=== PATIENT | male | born 1985 | race Caucasian/White ===

== ENCOUNTER 2019-04-20 21:57 | Inpatient (IN) | payer OTHER ==
[2019-04-20 23:23] VITALS: BMI 25.5
--- NOTE | 2019-04-21 04:33 | HP ---
CIWA Score - Admission Criteria OASAS Guidelines: Admission for Medically Managed Detox: Requires at least one of the followin. CIWA greater than 12 2. Seizures within the past 24 hours 3. Delirium tremens within the past 24 hours 4. Hallucinations within the past 24 hours 5. Acute intervention needed for co occurring medical disorder 6. Acute intervention needed for co occurring psychiatric disorder 7. Severe withdrawal that cannot be handled at a lower level of care (continued vomiting, continued diarrhea, abnormal vital signs) requiring intravenous medication and/or fluids 8. Admission ROS [facility] - HPI Chief Complaint: Seeking admission to Rehab Allergies/Adverse Reactions: Allergies Allergy/AdvReac Type Severity Reaction Status Date / Time No Known Allergies Allergy Verified 04/20/19 23:00 History of Present Illness: 34 years old male with history of alcohol dependence is seeking admission to Rehab. He denies past medical history and reports suicidal attempt in 2018. Patient denies suicidal ideation at this time. - Ebola screening Have you traveled outside of the country in the last 21 days: No (N) Have you had contact with anyone from an Ebola affected area: No Do you have a fever: No - Review of Systems Constitutional: No Symptoms Reported EENT: reports: No Symptoms Reported Respiratory: reports: No Symptoms reported Cardiac: reports: No Symptoms Reported GI: reports: No Symptoms Reported : reports: No Symptoms Reported Musculoskeletal: reports: No Symptoms Reported Integumentary: reports: No Symptoms Reported Neuro: reports: No Symptoms reported Endocrine: reports: No Symptoms Reported Hematology: reports: No Symptoms Reported Psychiatric: reports: Mood/Affect Appropiate, Orientated x3 Other Systems: Reviewed and Negative Patient History - Patient Medical History Hx Anemia: No Hx Asthma: No Hx Chronic Obstructive Pulmonary Disease (COPD): No Hx Cancer: No Hx Cardiac Disorders: No Hx Congestive Heart Failure: No Hx Hypertension: No Hx Hypercholesterolemia: No Hx Pacemaker: No HX Cerebrovascular Accident: No Hx Seizures: No Hx Dementia: No Hx Diabetes: No Hx Gastrointestinal Disorders: No Hx Liver Disease: No Hx Genitourinary Disorders: No Hx Sexually Transmitted Disorders: No Hx Renal Disease (ESRD): No Hx Thyroid Disease: No Hx Human Immunodeficiency Virus (HIV): No Hx Hepatitis C: No Hx Depression: No Hx Suicide Attempt: No Hx Bipolar Disorder: No Hx Schizophrenia: No - Patient Surgical History Past Surgical History: No - PPD History Previous Implant?: Yes Documented Results: Negative w/o proof Implanted On Prior [facility] Admission?: No PPD to be Administered?: Yes - Reproductive History Patient is a Female of Child Bearing Age (11 -55 yrs old): No (male) - Smoking Cessation Smoking history: Current every day smoker Have you smoked in the past 12 months: Yes Aproximately how many cigarettes per day: 7 Hx Chewing Tobacco Use: Yes Initiated information on smoking cessation: No 'Breaking Loose' booklet given: 04/21/19 - Substance & Tx. History Hx Alcohol Use: Yes Hx Substance Use: Yes Substance Use Type: Alcohol, Tranquilizers Hx Substance Use Treatment: Yes - Substances abused Alcohol Substance route: Oral Frequency: 3-6 times per week Amount used: 12 shots of Vodka Age of first use: 14 Date of last use: 04/19/19 K2/Spice Substance route: Smoking Frequency: Daily Amount used: $10 Age of first use: 34 Date of last use: 04/19/19 Admission Physical Exam [facility] - Vital Signs Vital Signs: Vital Signs - 24 hr 04/20/19 22:59 Temperature 97.1 F L Pulse Rate 71 Respiratory 16 Rate Blood Pressure 146/90 - Physical General Appearance: Yes: Within Normal Limits HEENTM: Yes: Within Normal Limits, DIONE Respiratory: Yes: Within Normal Limits, Normal Breath Sounds, No Respiratory Distress Neck: Yes: No masses,lesions,Nodules, Trachea in good position Breast: Yes: Breast Exam Deferred Cardiology: Yes: Within Normal Limits Abdominal: Yes: Normal Bowel Sounds Genitourinary: Yes: Within Normal Limits Back: Yes: Normal Inspection Musculoskeletal: Yes: Within Normal Limits Extremities: Yes: Normal Capillary Refill, Normal Inspection Neurological: Yes: Within Normal Limits, biscuit packer II-XII NML intact Integumentary: Yes: Normal Color Lymphatic: Yes: Within Normal Limits - Diagnostic (1) Alcohol dependence Current Visit: Yes Status: Acute Qualifiers: Substance use status: uncomplicated Qualified Code(s): F10.20 - Alcohol dependence, uncomplicated (2) Nicotine dependence Current Visit: Yes Status: Chronic Qualifiers: Nicotine product type: cigarettes Substance use status: uncomplicated Qualified Code(s): F17.210 - Nicotine dependence, cigarettes, uncomplicated Cleared for Admission S - Detox or Rehab [facility] Level of Care: Observation Bed Claeared for Rehab Admission: Yes Breathalyzer - Breathalyzer Breathalyzer: 0 Inpatient Rehab Admission - Rehab Decision to Admit Inpatient rehab admission?: Yes - Initial Determination Are CD services needed?: No Free of communicable disease: Yes Not in need of hospitalization: Yes - Rehab Admission Criteria Previous failed treatment: Yes Poor recovery environment: Yes Comorbidities: Yes Lacks judgement: No Patient is meeting Inpatient Rehab admission criteria:: Yes
[2019-04-21] MEDS ORDERED: ACETAMINOPHEN 325 MG TABLET (FP) PO PRN (04:37)
[2019-04-21] MEDS ORDERED: MAGNESIUM HYDROX 2400MG/30ML ORAL SUSPENSION 30 ML CUP PO PRN (04:37)
[2019-04-21] MEDS ORDERED: MAGNESIUM CITRATE 300 ML BOTTLE PO PRN (04:37)
[2019-04-21] MEDS ORDERED: MAG HYDROX/AL HYDROX/SIMETH 30 ML UNIT-DOSE CUP PO PRN (04:37)
[2019-04-21] MEDS ORDERED: IBUPROFEN 400 MG TABLET (FP) PO PRN (04:37)
[2019-04-21] MEDS ORDERED: NICOTINE POLACRILEX 2 MG GUM BUC PRN (04:37)
[2019-04-21] MEDS ORDERED: P-EPHED 60MG/TRIPROLIDI 2.5MG TABLET PO PRN (04:37)
[2019-04-21] MEDS ORDERED: LOPERAMIDE HCL 2 MG CAPSULE PO PRN (04:37)
[2019-04-21] MEDS ORDERED: guaiFENesin 200 MG/10 ML 10 ML UNIT-DOSE CUPS PO PRN (04:37)
[2019-04-21] MEDS ORDERED: MENTHOL/PHENOL 1 EACH UD MM PRN (04:37)
[2019-04-21] MEDS: NICOTINE 14 MG/24 HOURS TOPICAL PATCH TD SCH (10:35)
[2019-04-21] MEDS: PRENATAL VITAMINS W/ FOLIC ACID TABLET (FP) PO SCH (10:35)
[2019-04-21 11:40] LABS: HEMATOCRIT 43.4 % (35.4-49); HEMOGLOBIN 14.4 GM/dL (11.7-16.9); MCH 30.9 pg (25.7-33.7); MCHC 33.1 g/dl (32.0-35.9); MEAN CELL VOLUME 93.3 fl (80-96); MEAN PLT VOLUME 9.7 fl (7.5-11.1); PLATELET COUNT 247 K/MM3 (134-434); RBC 4.65 M/mm3 (4.00-5.60); RDW 13.5 % (11.9-15.9); WHITE BLOOD COUNT 7.6 K/mm3 (4.0-10.0)
[2019-04-21 11:53] LABS: ALBUMIN 4.2 g/dl (3.4-5.0); BILIRUBIN,TOTAL 1.4 mg/dL (0.2-1); BLOOD UREA NITROGEN 17.9 mg/dL (7-18); CALCIUM 9.8 mg/dL (8.5-10.1); CREATININE 1.1 mg/dL (0.55-1.3); POTASSIUM 3.9 mmol/L (3.5-5.1); TOT PROT 7.4 g/dl (6.4-8.2)
--- NOTE | 2019-04-21 13:06 | PN ---
[facility] Progress Note Note: Pt requesting to continue with medication for abrasion(sustained when jumped and fell on concrete) on lower jaw and itchy cracked feet. Reports he was given two Rx but forgot it in the pharmacy outside before coming here. Pt is a new admission to rehab earlier last night. Alert o x 3. oob ambulating on the unit. NAD. Vital Signs - 24 hr 04/20/19 04/21/19 22:59 07:50 Temperature 97.1 F L 97.4 F L Pulse Rate 71 76 Respiratory 16 18 Rate Blood Pressure 146/90 138/88 Laboratory Tests 04/21/19 04/21/19 08:40 08:40 WBC 7.6 RBC 4.65 Hgb 14.4 Hct 43.4 MCV 93.3 MCH 30.9 MCHC 33.1 RDW 13.5 Plt Count 247 MPV 9.7 Sodium 138 Potassium 3.9 Chloride 104 Carbon Dioxide 26 Anion Gap 8 BUN 17.9 Creatinine 1.1 Est GFR (CKD-EPI)AfAm 99.57 Est GFR (CKD-EPI)NonAf 85.91 Random Glucose 133 H Calcium 9.8 Total Bilirubin 1.4 H AST 55 H ALT 102 H Alkaline Phosphatase 68 Total Protein 7.4 Albumin 4.2 Abrasion on bearded area on mid lower jaw. A/P Jaw abrasion hx Tinea pedis Tinactin cream apply as directed. Bacitracin ointment TP BID apply to affected area
[2019-04-21 15:14] LABS: URINE APPEARANCE CLEAR; URINE BILIRUBIN NEGATIVE (NEGATIVE); URINE COLOR YELLOW; URINE GLUCOSE (UA) NEGATIVE (NEGATIVE); URINE KETONE NEGATIVE (NEGATIVE); URINE LEUK ESTERASE NEGATIVE (NEGATIVE); URINE NITRITE NEGATIVE (NEGATIVE); URINE PROTEIN NEGATIVE (NEGATIVE)
[2019-04-21] MEDS: TOLNAFTATE 1% CREAM 15 GM TUBE TP SCH ×2 (15:34→21:27)
[2019-04-21] MEDS: BACITRACIN 15 GM TUBE TOPICAL OINTMENT TP SCH ×2 (15:34→21:26)
[2019-04-21] MEDS: MELATONIN 5 MG TABLETS PO PRN (21:28)
[2019-04-21] MEDS: THIAMINE HCL 100 MG TABLET (FP) PO SCH (21:28)
[2019-04-22] MEDS: TOLNAFTATE 1% CREAM 15 GM TUBE TP SCH ×2 (10:15→21:24)
[2019-04-22] MEDS: PRENATAL VITAMINS W/ FOLIC ACID TABLET (FP) PO SCH (10:15)
[2019-04-22] MEDS: NICOTINE 14 MG/24 HOURS TOPICAL PATCH TD SCH (10:16)
[2019-04-22] MEDS: BACITRACIN 15 GM TUBE TOPICAL OINTMENT TP SCH ×2 (10:17→21:24)
[2019-04-22] MEDS: THIAMINE HCL 100 MG TABLET (FP) PO SCH (21:23)
[2019-04-23] MEDS: PRENATAL VITAMINS W/ FOLIC ACID TABLET (FP) PO SCH (10:21)
[2019-04-23] MEDS: NICOTINE 14 MG/24 HOURS TOPICAL PATCH TD SCH (10:21)
[2019-04-23] MEDS: BACITRACIN 15 GM TUBE TOPICAL OINTMENT TP SCH ×2 (10:22→21:26)
[2019-04-23] MEDS: TOLNAFTATE 1% CREAM 15 GM TUBE TP SCH ×2 (10:23→21:26)
[2019-04-23] MEDS: THIAMINE HCL 100 MG TABLET (FP) PO SCH (21:25)
[2019-04-23] MEDS: MELATONIN 5 MG TABLETS PO PRN (21:25)
[2019-04-24] MEDS: PRENATAL VITAMINS W/ FOLIC ACID TABLET (FP) PO SCH (10:30)
[2019-04-24] MEDS: BACITRACIN 15 GM TUBE TOPICAL OINTMENT TP SCH ×2 (10:31→21:31)
[2019-04-24] MEDS: NICOTINE 14 MG/24 HOURS TOPICAL PATCH TD SCH (10:32)
[2019-04-24] MEDS: TOLNAFTATE 1% CREAM 15 GM TUBE TP SCH ×2 (10:32→21:31)
[2019-04-24] MEDS: MELATONIN 5 MG TABLETS PO PRN (21:31)
[2019-04-24] MEDS: THIAMINE HCL 100 MG TABLET (FP) PO SCH (21:31)
[2019-04-25] MEDS: TOLNAFTATE 1% CREAM 15 GM TUBE TP SCH ×2 (09:57→21:26)
[2019-04-25] MEDS: PRENATAL VITAMINS W/ FOLIC ACID TABLET (FP) PO SCH (09:57)
[2019-04-25] MEDS: NICOTINE 14 MG/24 HOURS TOPICAL PATCH TD SCH (09:57)
[2019-04-25] MEDS: BACITRACIN 15 GM TUBE TOPICAL OINTMENT TP SCH ×2 (09:58→21:26)
[2019-04-25] MEDS: THIAMINE HCL 100 MG TABLET (FP) PO SCH (21:25)
[2019-04-25] MEDS: MELATONIN 5 MG TABLETS PO PRN (21:25)
[2019-04-26] MEDS: BACITRACIN 15 GM TUBE TOPICAL OINTMENT TP SCH ×2 (10:25→21:36)
[2019-04-26] MEDS: PRENATAL VITAMINS W/ FOLIC ACID TABLET (FP) PO SCH (10:26)
[2019-04-26] MEDS: NICOTINE 14 MG/24 HOURS TOPICAL PATCH TD SCH (10:26)
[2019-04-26] MEDS: TOLNAFTATE 1% CREAM 15 GM TUBE TP SCH ×2 (10:27→21:36)
[2019-04-26] MEDS: THIAMINE HCL 100 MG TABLET (FP) PO SCH (21:36)
[2019-04-26] MEDS: MELATONIN 5 MG TABLETS PO PRN (21:37)
[2019-04-27] MEDS: PRENATAL VITAMINS W/ FOLIC ACID TABLET (FP) PO SCH (10:16)
[2019-04-27] MEDS: NICOTINE 14 MG/24 HOURS TOPICAL PATCH TD SCH (10:17)
[2019-04-27] MEDS: TOLNAFTATE 1% CREAM 15 GM TUBE TP SCH ×2 (10:18→21:28)
[2019-04-27] MEDS: BACITRACIN 15 GM TUBE TOPICAL OINTMENT TP SCH ×2 (10:18→21:28)
[2019-04-27] MEDS: THIAMINE HCL 100 MG TABLET (FP) PO SCH (21:28)
[2019-04-27] MEDS: MELATONIN 5 MG TABLETS PO PRN (21:28)
[2019-04-28] MEDS: PRENATAL VITAMINS W/ FOLIC ACID TABLET (FP) PO SCH (10:49)
[2019-04-28] MEDS: BACITRACIN 15 GM TUBE TOPICAL OINTMENT TP SCH ×2 (10:50→21:29)
[2019-04-28] MEDS: TOLNAFTATE 1% CREAM 15 GM TUBE TP SCH ×2 (10:50→21:29)
[2019-04-28] MEDS: NICOTINE 14 MG/24 HOURS TOPICAL PATCH TD SCH (10:51)
--- NOTE | 2019-04-28 15:25 | PN ---
[facility] Progress Note Note: lab review: Laboratory Tests 04/21/19 04/21/19 04/21/19 08:40 08:40 08:40 WBC 7.6 RBC 4.65 Hgb 14.4 Hct 43.4 MCV 93.3 MCH 30.9 MCHC 33.1 RDW 13.5 Plt Count 247 MPV 9.7 Sodium 138 Potassium 3.9 Chloride 104 Carbon Dioxide 26 Anion Gap 8 BUN 17.9 Creatinine 1.1 Est GFR (CKD-EPI)AfAm 99.57 Est GFR (CKD-EPI)NonAf 85.91 POC Glucometer Random Glucose 133 H Calcium 9.8 Total Bilirubin 1.4 H AST 55 H ALT 102 H Alkaline Phosphatase 68 Total Protein 7.4 Albumin 4.2 Urine Color Urine Appearance Urine pH Ur Specific [place] Urine Protein Urine Glucose (UA) Urine Ketones Urine Blood Urine Nitrite Urine Bilirubin Urine Urobilinogen Ur Leukocyte Esterase RPR Titer Nonreactive Hep C Ab Diagnostic HCV RNA PCR w/Genot Rflx Liver Fibrosis Interp HIV 1&2 Ag/Ab, 4th Gen 04/21/19 04/22/19 04/23/19 13:35 09:00 06:37 WBC RBC Hgb Hct MCV MCH MCHC RDW Plt Count MPV Sodium Potassium Chloride Carbon Dioxide Anion Gap BUN Creatinine Est GFR (CKD-EPI)AfAm Est GFR (CKD-EPI)NonAf POC Glucometer 88 Random Glucose Calcium Total Bilirubin AST ALT Alkaline Phosphatase Total Protein Albumin Urine Color Yellow Urine Appearance Clear Urine pH 7.0 Ur Specific [place] 1.023 Urine Protein Negative Urine Glucose (UA) Negative Urine Ketones Negative Urine Blood Negative Urine Nitrite Negative Urine Bilirubin Negative Urine Urobilinogen 1.0 Ur Leukocyte Esterase Negative RPR Titer Hep C Ab Diagnostic >11.0 H HCV RNA PCR w/Genot Rflx [id number] Liver Fibrosis Interp HIV 1&2 Ag/Ab, 4th Gen 04/24/19 04/25/19 06:26 07:50 WBC RBC Hgb Hct MCV MCH MCHC RDW Plt Count MPV Sodium Potassium Chloride Carbon Dioxide Anion Gap BUN Creatinine Est GFR (CKD-EPI)AfAm Est GFR (CKD-EPI)NonAf POC Glucometer 87 Random Glucose Calcium Total Bilirubin AST ALT Alkaline Phosphatase Total Protein Albumin Urine Color Urine Appearance Urine pH Ur Specific [place] Urine Protein Urine Glucose (UA) Urine Ketones Urine Blood Urine Nitrite Urine Bilirubin Urine Urobilinogen Ur Leukocyte Esterase RPR Titer Hep C Ab Diagnostic HCV RNA PCR w/Genot Rflx Liver Fibrosis Interp HIV 1&2 Ag/Ab, 4th Gen Non reactive Vital Signs - 24 hr 04/28/19 04/28/19 04/28/19 00:30 03:30 07:12 Temperature 97.2 F L Pulse Rate 56 L Respiratory 18 18 18 Rate Blood Pressure 142/84 Hep C screen noted. Alert o x 3 nad oob ambulating with steady gait Pt states he has never been diagnosed with Hep C. However, pt reports had a comprehensive blood work at his primary care place with [facility] on [address] [place] [address] but did not go back yet for the results before coming here. Pt reports he last used I.V. crystal meth on 07/03/18 for many months before that. Reports was sharing needle with a girl but not sure her Hep C status. Pt is not a [place] Resident and wants to follow up with [facility] where his PCP is currently available to follow up with the results and review his previous blood work done there as well. Pt will be discharged with all lab results to follow up with his PCP(Pt is not sure his name but says he is at [facility]).
[2019-04-28] MEDS: MELATONIN 5 MG TABLETS PO PRN (21:29)
[2019-04-28] MEDS: THIAMINE HCL 100 MG TABLET (FP) PO SCH (21:29)
[2019-04-29] MEDS: NICOTINE 14 MG/24 HOURS TOPICAL PATCH TD SCH (10:24)
[2019-04-29] MEDS: TOLNAFTATE 1% CREAM 15 GM TUBE TP SCH ×2 (10:24→21:26)
[2019-04-29] MEDS: PRENATAL VITAMINS W/ FOLIC ACID TABLET (FP) PO SCH (10:24)
[2019-04-29] MEDS: BACITRACIN 15 GM TUBE TOPICAL OINTMENT TP SCH ×2 (10:24→21:26)
[2019-04-29] MEDS: THIAMINE HCL 100 MG TABLET (FP) PO SCH (21:24)
[2019-04-29] MEDS: MELATONIN 5 MG TABLETS PO PRN (21:25)
[2019-04-30] MEDS: TOLNAFTATE 1% CREAM 15 GM TUBE TP SCH ×2 (11:04→21:34)
[2019-04-30] MEDS: BACITRACIN 15 GM TUBE TOPICAL OINTMENT TP SCH ×2 (11:04→21:34)
[2019-04-30] MEDS: PRENATAL VITAMINS W/ FOLIC ACID TABLET (FP) PO SCH (11:04)
[2019-04-30] MEDS: NICOTINE 14 MG/24 HOURS TOPICAL PATCH TD SCH (11:04)
--- NOTE | 2019-04-30 14:28 | PN ---
[facility] Progress Note Note: Pt was seen today by this conventional underwriter as well as by Hep C community outreach personel , Ms Brooklyn Desai from [facility] to educate patient on hep C treatment after discharge. Pt was given some Hep C educational material for personal reference. Vital Signs 04/30/19 07:25 Temperature 97.1 F L Pulse Rate 59 L Respiratory 16 Rate Blood Pressure 137/84 Pt will follow up with PCP at [facility] in the [place] after rehab stay as earlier discussed.
[2019-04-30] MEDS: THIAMINE HCL 100 MG TABLET (FP) PO SCH (21:34)
[2019-04-30] MEDS: MELATONIN 5 MG TABLETS PO PRN (21:34)
[2019-05-01] MEDS: PRENATAL VITAMINS W/ FOLIC ACID TABLET (FP) PO SCH (10:12)
[2019-05-01] MEDS: NICOTINE 14 MG/24 HOURS TOPICAL PATCH TD SCH (10:12)
[2019-05-01] MEDS: BACITRACIN 15 GM TUBE TOPICAL OINTMENT TP SCH ×2 (10:13→21:41)
[2019-05-01] MEDS: TOLNAFTATE 1% CREAM 15 GM TUBE TP SCH ×2 (10:13→21:41)
[2019-05-01] MEDS: THIAMINE HCL 100 MG TABLET (FP) PO SCH (21:40)
[2019-05-01] MEDS: MELATONIN 5 MG TABLETS PO PRN (21:40)
[2019-05-02] MEDS: NICOTINE 14 MG/24 HOURS TOPICAL PATCH TD SCH (10:19)
[2019-05-02] MEDS: PRENATAL VITAMINS W/ FOLIC ACID TABLET (FP) PO SCH (10:19)
[2019-05-02] MEDS: BACITRACIN 15 GM TUBE TOPICAL OINTMENT TP SCH ×2 (10:20→21:24)
[2019-05-02] MEDS: TOLNAFTATE 1% CREAM 15 GM TUBE TP SCH ×2 (10:20→21:25)
[2019-05-02] MEDS: THIAMINE HCL 100 MG TABLET (FP) PO SCH (21:24)
[2019-05-02] MEDS: MELATONIN 5 MG TABLETS PO PRN (21:24)
[2019-05-03] MEDS: NICOTINE 14 MG/24 HOURS TOPICAL PATCH TD SCH (09:52)
[2019-05-03] MEDS: TOLNAFTATE 1% CREAM 15 GM TUBE TP SCH ×2 (09:52→21:28)
[2019-05-03] MEDS: PRENATAL VITAMINS W/ FOLIC ACID TABLET (FP) PO SCH (09:52)
[2019-05-03] MEDS: BACITRACIN 15 GM TUBE TOPICAL OINTMENT TP SCH ×2 (09:53→21:28)
[2019-05-03] MEDS: MELATONIN 5 MG TABLETS PO PRN (21:27)
[2019-05-03] MEDS: THIAMINE HCL 100 MG TABLET (FP) PO SCH (21:27)
[2019-05-04 07:16] VITALS: BP 138/86; PULSE 70; TEMP 97.6
--- NOTE | 2019-05-04 10:01 | DS ---
[facility] Rehab Discharge Summary - [facility] Rehab Discharge Summary Admission Date: 04/21/19 Discharge Date: 05/04/19 - History Present History: Alcohol dependence Additional Comments: Pt is a 34 y/o male admitted to rehab and discharged today after completion of treatment. Pt met with his counselor and has been referred to [facility] for CD aftercare. Pt has primary care at [facility] and will follow up with PCP after discharge. Pertinent Past History: Hep C(untreated) - Discharge Physical Exam Vital Signs: Vital Signs Temperature 97.6 F 05/04/19 07:15 Pulse Rate 70 05/04/19 07:15 Respiratory Rate 18 05/04/19 07:15 Blood Pressure 138/86 05/04/19 07:15 O2 Sat by Pulse Oximetry (%) Alert o x 3 nad oob ambulating with steady gait cardiac:s1 s2 rrr lungs:cta,gerber. Abdomen:soft,flat,nt,+bs extremities/skin:no edema,full ROM,skin intact,multiple tattoos on upper extremities. Pertinent Admission Physical Exam Findings: Laboratory Tests 04/21/19 04/21/19 04/21/19 08:40 08:40 08:40 WBC 7.6 RBC 4.65 Hgb 14.4 Hct 43.4 MCV 93.3 MCH 30.9 MCHC 33.1 RDW 13.5 Plt Count 247 MPV 9.7 Sodium 138 Potassium 3.9 Chloride 104 Carbon Dioxide 26 Anion Gap 8 BUN 17.9 Creatinine 1.1 Est GFR (CKD-EPI)AfAm 99.57 Est GFR (CKD-EPI)NonAf 85.91 POC Glucometer Random Glucose 133 H Calcium 9.8 Total Bilirubin 1.4 H AST 55 H ALT 102 H Alkaline Phosphatase 68 Total Protein 7.4 Albumin 4.2 Urine Color Urine Appearance Urine pH Ur Specific [place] Urine Protein Urine Glucose (UA) Urine Ketones Urine Blood Urine Nitrite Urine Bilirubin Urine Urobilinogen Ur Leukocyte Esterase RPR Titer Nonreactive Hep C Ab Diagnostic HCV RNA PCR w/Genot Rflx Liver Fibrosis Interp HIV 1&2 Ag/Ab, 4th Gen 04/21/19 04/22/19 04/23/19 13:35 09:00 06:37 WBC RBC Hgb Hct MCV MCH MCHC RDW Plt Count MPV Sodium Potassium Chloride Carbon Dioxide Anion Gap BUN Creatinine Est GFR (CKD-EPI)AfAm Est GFR (CKD-EPI)NonAf POC Glucometer 88 Random Glucose Calcium Total Bilirubin AST ALT Alkaline Phosphatase Total Protein Albumin Urine Color Yellow Urine Appearance Clear Urine pH 7.0 Ur Specific [place] 1.023 Urine Protein Negative Urine Glucose (UA) Negative Urine Ketones Negative Urine Blood Negative Urine Nitrite Negative Urine Bilirubin Negative Urine Urobilinogen 1.0 Ur Leukocyte Esterase Negative RPR Titer Hep C Ab Diagnostic >11.0 H HCV RNA PCR w/Genot Rflx [id number] Liver Fibrosis Interp HIV 1&2 Ag/Ab, 4th Gen 04/24/19 04/25/19 04/30/19 06:26 07:50 07:22 WBC RBC Hgb Hct MCV MCH MCHC RDW Plt Count MPV Sodium Potassium Chloride Carbon Dioxide Anion Gap BUN Creatinine Est GFR (CKD-EPI)AfAm Est GFR (CKD-EPI)NonAf POC Glucometer 87 91 Random Glucose Calcium Total Bilirubin AST ALT Alkaline Phosphatase Total Protein Albumin Urine Color Urine Appearance Urine pH Ur Specific [place] Urine Protein Urine Glucose (UA) Urine Ketones Urine Blood Urine Nitrite Urine Bilirubin Urine Urobilinogen Ur Leukocyte Esterase RPR Titer Hep C Ab Diagnostic HCV RNA PCR w/Genot Rflx Liver Fibrosis Interp HIV 1&2 Ag/Ab, 4th Gen Non reactive Pt states he has never been diagnosed with Hep C. However, pt reports had a comprehensive blood work at his primary care place with [facility] on [address] [place] [address] but did not go back yet for the results before coming here. Pt reports he last used I.V. crystal meth on 07/03/18 for many months before that. Reports was sharing needle with a girl but not sure her Hep C status. Pt is not a [place] Resident and wants to follow up with [facility] where his PCP is currently available to follow up with the results and review his previous blood work done there as well. Pt has been discharged with all lab results to follow up with his PCP(Pt is not sure his name but says he is at [facility]). - Treatment Discharge Condition: Discharge condition good Hospital Course: rehabilitated safely and responded well CD aftercare referral accepted. Pt was consulted by I.D counselor to explain and give patient all resources necessary for follow up of his positive hep C screen results with [facility] primary care. Pt was given personal educational reading materials as well. - Medication Discharge Medications: Ambulatory Orders NK [No Known Home Medication] 04/20/19 - Medication-Assisted Treatment (MAT) Medication-Assisted Treatment (MAT): No - Discharge Instructions Diet, activity, other medical instructions: Diet:Regular Activity:oob ad jamie Other medical instructions:follow up with primary care at [facility] within 1 week after discharge. Follow up with aftercare at [facility] as recommended and scheduled. - Diagnosis (1) Methamphetamine abuse Status: Chronic (2) Alcohol dependence Status: Chronic Qualifiers: Substance use status: uncomplicated Qualified Code(s): F10.20 - Alcohol dependence, uncomplicated (3) Nicotine dependence Status: Chronic Qualifiers: Nicotine product type: cigarettes Substance use status: uncomplicated Qualified Code(s): F17.210 - Nicotine dependence, cigarettes, uncomplicated (4) Hepatitis C antibody positive in blood Status: Chronic - Follow-up Referral Minutes to complete discharge: 20 - AMA Did Patient Leave Against Medical Advice: No
[2019-05-04] MEDS: NICOTINE 14 MG/24 HOURS TOPICAL PATCH TD SCH (10:20)
[2019-05-04] MEDS: BACITRACIN 15 GM TUBE TOPICAL OINTMENT TP SCH (10:20)
[2019-05-04] MEDS: PRENATAL VITAMINS W/ FOLIC ACID TABLET (FP) PO SCH (10:20)
[2019-05-04] MEDS: TOLNAFTATE 1% CREAM 15 GM TUBE TP SCH (10:20)
== END 2019-05-04 10:25 | disposition home or self-care (01) | DRG 772 ==
LOC: YASAS 21:57 → Y5N 04-21 03:51
PROVIDERS: ADMIT Neuromusculoskeletal Medicine & OMM; ATTEND Neuromusculoskeletal Medicine & OMM
PROC: HZ42ZZZ Group Counseling for Substance Abuse Treatment, Cognitive-Behavioral (ICD-10-PCS; principal; 2019-04-21)
DX: F10.20 Alcohol dependence, uncomplicated (principal); F19.20 Other psychoactive substance dependence, uncomplicated; F15.10 Other stimulant abuse, uncomplicated; F17.210 Nicotine dependence, cigarettes, uncomplicated; B18.2 Chronic viral hepatitis C; B35.3 Tinea pedis; S00.81XA Abrasion of other part of head, initial encounter; W19.XXXA Unspecified fall, initial encounter; Y93.89 Activity, other specified; Y92.89 Other specified places as the place of occurrence of the external cause; Y99.8 Other external cause status
CPT/HCPCS: 36415; 71046-TC-FY; 80053; 81003; 82962; 85027; 86593; 86803; 87389

== ENCOUNTER 2019-05-28 18:33 | Inpatient (IN) | payer OTHER ==
[2019-05-28 21:08] VITALS: BMI 27.6
--- NOTE | 2019-05-28 23:30 | HP ---
CIWA Score Nausea/Vomitin Muscle Tremors: 4-Moderate,w/Arms Extend Anxiety: 4-Mod. Anxious/Guarded Agitation: 0-Normal Activity Paroxysmal Sweats: 2 Orientation: 2-Disoriented Date<2 days Tacttile Disturbances: 0-None Auditory Disturbances: 0-None Visual Disturbances: 0-None Headache: 0-None Present CIWA-Ar Total Score: 15 - Admission Criteria OASAS Guidelines: Admission for Medically Managed Detox: Requires at least one of the followin. CIWA greater than 12 2. Seizures within the past 24 hours 3. Delirium tremens within the past 24 hours 4. Hallucinations within the past 24 hours 5. Acute intervention needed for co occurring medical disorder 6. Acute intervention needed for co occurring psychiatric disorder 7. Severe withdrawal that cannot be handled at a lower level of care (continued vomiting, continued diarrhea, abnormal vital signs) requiring intravenous medication and/or fluids 8. Admitting History and Physical - Smoking History Smoking history: Current every day smoker Have you smoked in the past 12 months: Yes Aproximately how many cigarettes per day: 7 - Alcohol/Substance Use Hx Alcohol Use: Yes Admission ROS [facility] - HPI Allergies/Adverse Reactions: Allergies Allergy/AdvReac Type Severity Reaction Status Date / Time No Known Allergies Allergy Verified 05/28/19 21:03 History of Present Illness: pt here requesting detox from etoh use, report vodka x 24 nips /day , reports tremors if not drinking, latest use today , beers x 3-4 x 24 oz each of 14 % , latest use this afternoon , denies seizures , blackouts . ETOH x 10 years , increased x 3 weeks . 3 children ages 16,11, 4 in [place], [place] w/ 2 bio mothers cocaine : with etoh use , not daily use Exam Limitations: Clinical Condition - Ebola screening Have you traveled outside of the country in the last 21 days: No (N) Have you had contact with anyone from an Ebola affected area: No Do you have a fever: No - Review of Systems Constitutional: See HPI EENT: reports: Other (myopia , denies dysphagia) Respiratory: reports: No Symptoms reported Cardiac: reports: No Symptoms Reported GI: reports: See HPI, Nausea : reports: No Symptoms Reported Musculoskeletal: reports: No Symptoms Reported Integumentary: reports: No Symptoms Reported Neuro: reports: See HPI, Tremors Endocrine: reports: No Symptoms Reported Hematology: reports: No Symptoms Reported Psychiatric: reports: Agitated, Anxious Patient History - Patient Medical History Hx Anemia: No Hx Asthma: No Hx Chronic Obstructive Pulmonary Disease (COPD): No Hx Cancer: No Hx Cardiac Disorders: No Hx Congestive Heart Failure: No Hx Hypertension: No Hx Hypercholesterolemia: No Hx Pacemaker: No HX Cerebrovascular Accident: No Hx Seizures: No Hx Dementia: No Hx Diabetes: No Hx Gastrointestinal Disorders: No Hx Liver Disease: No Hx Genitourinary Disorders: No Hx Sexually Transmitted Disorders: No Hx Renal Disease (ESRD): No Hx Thyroid Disease: No Hx Human Immunodeficiency Virus (HIV): No Hx Hepatitis C: No Hx Depression: No Hx Suicide Attempt: No Hx Bipolar Disorder: No Hx Schizophrenia: No - Patient Surgical History Past Surgical History: No Hx Neurologic Surgery: No Hx Cataract Extraction: No Hx Cardiac Surgery: No Hx Lung Surgery: No Hx Breast Surgery: No Hx Breast Biopsy: No Hx Abdominal Surgery: No Hx Appendectomy: No Hx Cholecystectomy: No Hx Genitourinary Surgery: No Hx Section: No Hx Orthopedic Surgery: No Anesthesia Reaction: No - Smoking Cessation Smoking history: Current every day smoker Have you smoked in the past 12 months: Yes Aproximately how many cigarettes per day: 7 Hx Chewing Tobacco Use: Yes Initiated information on smoking cessation: Yes 'Breaking Loose' booklet given: 05/28/19 - Substances abused Alcohol Substance route: Oral Frequency: 3-6 times per week Amount used: liquor- 1 pint, beer- 24oz (4) Age of first use: 14 Date of last use: 05/28/19 K2/Spice Substance route: Smoking Frequency: Daily Amount used: $10 Age of first use: 34 Date of last use: 04/28/19 Admission Physical Exam [facility] - Vital Signs Vital Signs: Vital Signs - 24 hr 05/28/19 21:02 Temperature 97.4 F L Pulse Rate 100 H Respiratory 18 Rate Blood Pressure 111/70 - Physical General Appearance: Yes: Mild Distress, Tremorous, Anxious HEENTM: Yes: EOMI, Hearing grossly Normal, Normocephalic, Normal Voice Respiratory: Yes: Chest Non-Tender, Lungs Clear, Normal Breath Sounds, No Respiratory Distress, No Accessory Muscle Use Neck: Yes: No masses,lesions,Nodules, Trachea in good position Cardiology: Yes: Regular Rhythm, Regular Rate, S1, S2, Tachycardia Abdominal: Yes: Non Tender, Soft Musculoskeletal: Yes: Gait Steady Neurological: Yes: Alert, Depressed Affect Integumentary: Yes: Warm - Diagnostic (1) Alcohol dependence Current Visit: Yes Status: Chronic Qualifiers: Substance use status: in withdrawal Breathalyzer - Breathalyzer Breathalyzer: 0.023 Urine Drug Screen - Test Device Lot number: [id number] Expiration date: 01/14/21 - Control Is test valid?: Yes - Results Drug screen NEGATIVE: No Urine drug screen results: SYL-Cocaine Inpatient Rehab Admission - Rehab Decision to Admit Inpatient rehab admission?: No
[2019-05-28] MEDS ORDERED: PROCHLORPERAZINE MALEATE 5 MG TABLET PO PRN (23:41)
[2019-05-28] MEDS ORDERED: MAGNESIUM HYDROX 2400MG/30ML ORAL SUSPENSION 30 ML CUP PO PRN (23:41)
[2019-05-28] MEDS ORDERED: MAG HYDROX/AL HYDROX/SIMETH 30 ML UNIT-DOSE CUP PO PRN (23:41)
[2019-05-28] MEDS ORDERED: BISMUTH SUBSALICYLATE 524 MG/30 ML UD PO PRN (23:41)
[2019-05-28] MEDS ORDERED: MENTHOL/PHENOL 1 EACH UD MM PRN (23:41)
[2019-05-28] MEDS ORDERED: ACETAMINOPHEN 325 MG TABLET (FP) PO PRN ×2 (23:41)
[2019-05-28] MEDS ORDERED: hydrOXYzine PAMOATE 25 MG CAPSULE (FP) PO PRN (23:41)
[2019-05-28] MEDS ORDERED: MAGNESIUM CITRATE 300 ML BOTTLE PO PRN (23:41)
[2019-05-28] MEDS ORDERED: IBUPROFEN 400 MG TABLET (FP) PO PRN (23:41)
[2019-05-29] MEDS: diazePAM 5 MG TABLET PO SCH ×4 (00:33→22:20)
[2019-05-29] MEDS: MELATONIN 5 MG TABLETS PO PRN ×2 (00:34→22:20)
[2019-05-29 10:07] LABS: HEMATOCRIT 41.8 % (35.4-49); MCH 31.3 pg (25.7-33.7); MCHC 33.4 g/dl (32.0-35.9); MEAN CELL VOLUME 93.8 fl (80-96); MEAN PLT VOLUME 9.4 fl (7.5-11.1); PLATELET COUNT 193 K/MM3 (134-434); RBC 4.46 M/mm3 (4.00-5.60); RDW 14.6 % (11.9-15.9); WHITE BLOOD COUNT 6.3 K/mm3 (4.0-10.0)
[2019-05-29 10:15] LABS: ALBUMIN 3.4 g/dl (3.4-5.0); BILIRUBIN,TOTAL 1.9 mg/dL (0.2-1); BLOOD UREA NITROGEN 17.8 mg/dL (7-18); CREATININE 0.9 mg/dL (0.55-1.3); POTASSIUM 3.8 mmol/L (3.5-5.1); TOT PROT 6.6 g/dl (6.4-8.2)
[2019-05-29] MEDS: PRENATAL VITAMINS W/ FOLIC ACID TABLET (FP) PO SCH (10:29)
[2019-05-29] MEDS: NICOTINE 14 MG/24 HOURS TOPICAL PATCH TD SCH (10:30)
--- NOTE | 2019-05-29 14:50 | PN ---
S CIWA - CIWA Score Nausea/Vomitin Muscle Tremors: 2 Anxiety: 2 Agitation: 2 Paroxysmal Sweats: No Perspiration Orientation: 0-Oriented Tacttile Disturbances: 1-Very Mild Itch/Numbness Auditory Disturbances: 0-None Visual Disturbances: 0-None Headache: 2-Mild CIWA-Ar Total Score: 11 S Progress Note (SOAP) Subjective: alert,irritable,anxious,interrupted sleep,pain in the body Objective: 05/29/19 14:48 Vital Signs Temperature 97.8 F 05/29/19 13:24 Pulse Rate 82 05/29/19 13:24 Respiratory Rate 18 05/29/19 13:24 Blood Pressure 125/88 05/29/19 13:24 O2 Sat by Pulse Oximetry (%) 05/29/19 14:49 Laboratory Last Values WBC 6.3 K/mm3 (4.0-10.0) 05/29/19 08:00 RBC 4.46 M/mm3 (4.00-5.60) 05/29/19 08:00 Hgb 14.0 GM/dL (11.7-16.9) 05/29/19 08:00 Hct 41.8 % (35.4-49) 05/29/19 08:00 MCV 93.8 fl (80-96) 05/29/19 08:00 MCH 31.3 pg (25.7-33.7) 05/29/19 08:00 MCHC 33.4 g/dl (32.0-35.9) 05/29/19 08:00 RDW 14.6 % (11.9-15.9) 05/29/19 08:00 Plt Count 193 K/MM3 (134-434) D 05/29/19 08:00 MPV 9.4 fl (7.5-11.1) 05/29/19 08:00 Sodium 138 mmol/L (136-145) 05/29/19 08:00 Potassium 3.8 mmol/L (3.5-5.1) 05/29/19 08:00 Chloride 102 mmol/L (98-107) 05/29/19 08:00 Carbon Dioxide 29 mmol/L (21-32) 05/29/19 08:00 Anion Gap 6 MMOL/L (8-16) L 05/29/19 08:00 BUN 17.8 mg/dL (7-18) 05/29/19 08:00 Creatinine 0.9 mg/dL (0.55-1.3) 05/29/19 08:00 Est GFR (CKD-EPI)AfAm 126.90 05/29/19 08:00 Est GFR (CKD-EPI)NonAf 109.49 05/29/19 08:00 Random Glucose 98 mg/dL (74-106) 05/29/19 08:00 Calcium 9.0 mg/dL (8.5-10.1) 05/29/19 08:00 Total Bilirubin 1.9 mg/dL (0.2-1) H 05/29/19 08:00 AST 109 U/L (15-37) H 05/29/19 08:00 ALT 129 U/L (13-61) H 05/29/19 08:00 Alkaline Phosphatase 62 U/L (45-117) 05/29/19 08:00 Total Protein 6.6 g/dl (6.4-8.2) 05/29/19 08:00 Albumin 3.4 g/dl (3.4-5.0) 05/29/19 08:00 HIV 1&2 Antibody Screen Negative 05/29/19 08:00 HIV P24 Antigen Negative 05/29/19 08:00 Assessment: 05/29/19 14:49 withdrawal symptom Plan: continue detox valuim regimen,elevation of alt,ast,bili,repeat cmp,inr in am
[2019-05-29] MEDS: THIAMINE HCL 100 MG TABLET (FP) PO SCH (22:20)
[2019-05-30] MEDS: diazePAM 5 MG TABLET PO SCH ×2 (06:16→17:56)
[2019-05-30 10:49] LABS: ALBUMIN 3.6 g/dl (3.4-5.0); BILIRUBIN,TOTAL 1.2 mg/dL (0.2-1); BLOOD UREA NITROGEN 14.8 mg/dL (7-18); CALCIUM 9.1 mg/dL (8.5-10.1); POTASSIUM 4.1 mmol/L (3.5-5.1); TOT PROT 7.4 g/dl (6.4-8.2)
[2019-05-30] MEDS: PRENATAL VITAMINS W/ FOLIC ACID TABLET (FP) PO SCH (10:59)
[2019-05-30] MEDS: NICOTINE 14 MG/24 HOURS TOPICAL PATCH TD SCH (10:59)
[2019-05-30] MEDS: diazePAM 5 MG TABLET PO PRN (11:00)
--- NOTE | 2019-05-30 12:32 | PN ---
S CIWA - CIWA Score Nausea/Vomitin-No Nausea/No Vomiting Muscle Tremors: None Anxiety: 2 Agitation: 0-Normal Activity Paroxysmal Sweats: 3 Orientation: 0-Oriented Tacttile Disturbances: 0-None Auditory Disturbances: 0-None Visual Disturbances: 0-None Headache: 0-None Present CIWA-Ar Total Score: 5 S Progress Note (SOAP) Subjective: c/o sweats and anxiety. Objective: 05/30/19 12:28 Vital Signs 05/30/19 05/30/19 06:13 09:18 Temperature 96.8 F L 96.5 F L Pulse Rate 66 75 Respiratory 18 18 Rate Blood Pressure 116/79 140/92 Abnormal Lab Results 05/30/19 08:10 Random Glucose 121 H Total Bilirubin 1.2 H AST 139 H ALT 177 H Laboratory Last Values WBC 6.3 K/mm3 (4.0-10.0) 05/29/19 08:00 RBC 4.46 M/mm3 (4.00-5.60) 05/29/19 08:00 Hgb 14.0 GM/dL (11.7-16.9) 05/29/19 08:00 Hct 41.8 % (35.4-49) 05/29/19 08:00 MCV 93.8 fl (80-96) 05/29/19 08:00 MCH 31.3 pg (25.7-33.7) 05/29/19 08:00 MCHC 33.4 g/dl (32.0-35.9) 05/29/19 08:00 RDW 14.6 % (11.9-15.9) 05/29/19 08:00 Plt Count 193 K/MM3 (134-434) D 05/29/19 08:00 MPV 9.4 fl (7.5-11.1) 05/29/19 08:00 Sodium 138 mmol/L (136-145) 05/30/19 08:10 Potassium 4.1 mmol/L (3.5-5.1) 05/30/19 08:10 Chloride 104 mmol/L (98-107) 05/30/19 08:10 Carbon Dioxide 26 mmol/L (21-32) 05/30/19 08:10 Anion Gap 8 MMOL/L (8-16) 05/30/19 08:10 BUN 14.8 mg/dL (7-18) 05/30/19 08:10 Creatinine 1.0 mg/dL (0.55-1.3) 05/30/19 08:10 Est GFR (CKD-EPI)AfAm 111.73 05/30/19 08:10 Est GFR (CKD-EPI)NonAf 96.40 05/30/19 08:10 Random Glucose 121 mg/dL (74-106) H 05/30/19 08:10 Calcium 9.1 mg/dL (8.5-10.1) 05/30/19 08:10 Total Bilirubin 1.2 mg/dL (0.2-1) H 05/30/19 08:10 AST 139 U/L (15-37) H 05/30/19 08:10 ALT 177 U/L (13-61) H 05/30/19 08:10 Alkaline Phosphatase 67 U/L (45-117) 05/30/19 08:10 Total Protein 7.4 g/dl (6.4-8.2) 05/30/19 08:10 Albumin 3.6 g/dl (3.4-5.0) 05/30/19 08:10 HIV 1&2 Antibody Screen Negative 05/29/19 08:00 HIV P24 Antigen Negative 05/29/19 08:00 Labs noted with elevated liver enzymes. Assessment: 05/30/19 12:29 AOX3, in no acute respiratory distress. Full ROM, ambulating in the unit. Withdrawal symptoms. Elevated liver enzymes. For d/c tomorrow. 05/30/19 12:30 Plan: continue detox. D/C in AM. Pt to follow-up with his PMD for elevated liver enzymes after d/c. Repeat liver enzymes before d/c.
[2019-05-30 13:18] LABS: INR 0.84 (0.83-1.09); PROTHROMBIN TIME (PATIENT) 9.9 SEC (9.7-13.0)
[2019-05-30] MEDS ORDERED: diazePAM 5 MG TABLET PO ONE (20:58)
[2019-05-30] MEDS: THIAMINE HCL 100 MG TABLET (FP) PO SCH (22:28)
[2019-05-30] MEDS: MELATONIN 5 MG TABLETS PO PRN (22:30)
[2019-05-31] MEDS ORDERED: diazePAM 5 MG TABLET PO ONE (06:00)
[2019-05-31] MEDS: PRENATAL VITAMINS W/ FOLIC ACID TABLET (FP) PO SCH (10:12)
[2019-05-31] MEDS: NICOTINE 14 MG/24 HOURS TOPICAL PATCH TD SCH (10:12)
[2019-05-31] MEDS: diazePAM 5 MG TABLET PO PRN (10:14)
[2019-05-31 11:16] LABS: ALBUMIN 3.4 g/dl (3.4-5.0); BILIRUBIN,DIRECT 0.2 mg/dL (0.0-0.2); BILIRUBIN,TOTAL 0.7 mg/dL (0.2-1); TOT PROT 6.7 g/dl (6.4-8.2)
[2019-05-31] MEDS ORDERED: diazePAM 5 MG TABLET PO PRN (11:17)
--- NOTE | 2019-05-31 11:22 | PN ---
S CIWA - CIWA Score Nausea/Vomitin-No Nausea/No Vomiting Muscle Tremors: None Anxiety: 3 Agitation: 0-Normal Activity Paroxysmal Sweats: No Perspiration Orientation: 0-Oriented Tacttile Disturbances: 0-None Auditory Disturbances: 0-None Visual Disturbances: 0-None Headache: 0-None Present CIWA-Ar Total Score: 3 BHS Progress Note (SOAP) Subjective: 34 years old male admitted on 05/28/19 for alcohol withdrawal sx management treating with valium detox regimen anxious irritable fear of relapse restlessness case discussed with the counselor senior tax manager and the nurse that delay discharge date to 06/01/19 is necessary order valium 5 mg po q12h prn for 05/31/19 Objective: 05/31/19 11:21 Vital Signs Temperature 97.7 F 05/31/19 09:19 Pulse Rate 82 05/31/19 09:19 Respiratory Rate 18 05/31/19 09:19 Blood Pressure 124/93 05/31/19 09:19 O2 Sat by Pulse Oximetry (%) Laboratory Last Values WBC 6.3 K/mm3 (4.0-10.0) 05/29/19 08:00 RBC 4.46 M/mm3 (4.00-5.60) 05/29/19 08:00 Hgb 14.0 GM/dL (11.7-16.9) 05/29/19 08:00 Hct 41.8 % (35.4-49) 05/29/19 08:00 MCV 93.8 fl (80-96) 05/29/19 08:00 MCH 31.3 pg (25.7-33.7) 05/29/19 08:00 MCHC 33.4 g/dl (32.0-35.9) 05/29/19 08:00 RDW 14.6 % (11.9-15.9) 05/29/19 08:00 Plt Count 193 K/MM3 (134-434) D 05/29/19 08:00 MPV 9.4 fl (7.5-11.1) 05/29/19 08:00 PT with INR 9.90 SEC (9.7-13.0) 05/30/19 08:10 INR 0.84 (0.83-1.09) 05/30/19 08:10 Sodium 138 mmol/L (136-145) 05/30/19 08:10 Potassium 4.1 mmol/L (3.5-5.1) 05/30/19 08:10 Chloride 104 mmol/L (98-107) 05/30/19 08:10 Carbon Dioxide 26 mmol/L (21-32) 05/30/19 08:10 Anion Gap 8 MMOL/L (8-16) 05/30/19 08:10 BUN 14.8 mg/dL (7-18) 05/30/19 08:10 Creatinine 1.0 mg/dL (0.55-1.3) 05/30/19 08:10 Est GFR (CKD-EPI)AfAm 111.73 05/30/19 08:10 Est GFR (CKD-EPI)NonAf 96.40 05/30/19 08:10 Random Glucose 121 mg/dL (74-106) H 05/30/19 08:10 Calcium 9.1 mg/dL (8.5-10.1) 05/30/19 08:10 Total Bilirubin 0.7 mg/dL (0.2-1) 05/31/19 08:00 Direct Bilirubin 0.2 mg/dL (0.0-0.2) 05/31/19 08:00 AST 81 U/L (15-37) H 05/31/19 08:00 ALT 143 U/L (13-61) H 05/31/19 08:00 Alkaline Phosphatase 58 U/L (45-117) 05/31/19 08:00 Total Protein 6.7 g/dl (6.4-8.2) 05/31/19 08:00 Albumin 3.4 g/dl (3.4-5.0) 05/31/19 08:00 HIV 1&2 Antibody Screen Negative 05/29/19 08:00 HIV P24 Antigen Negative 05/29/19 08:00 lab noted health teaching on alcohol related ast elevation 05/31/19 11:23 Assessment: 05/31/19 11:23 alcohol withdrawal Plan: valium regimen
[2019-05-31] MEDS: THIAMINE HCL 100 MG TABLET (FP) PO SCH (22:22)
[2019-05-31] MEDS: METHOCARBAMOL 500 MG TABLET PO PRN (22:22)
[2019-06-01] MEDS: METHOCARBAMOL 500 MG TABLET PO PRN (10:27)
[2019-06-01] MEDS: PRENATAL VITAMINS W/ FOLIC ACID TABLET (FP) PO SCH (10:27)
[2019-06-01 12:43] VITALS: BP 140/82; PULSE 98; TEMP 97.4
[2019-06-01] MEDS: NICOTINE 14 MG/24 HOURS TOPICAL PATCH TD SCH (13:01)
--- NOTE | 2019-06-01 13:37 | DS ---
[facility] Detox Discharge Summary Admission Date: 05/28/19 Discharge Date: 06/01/19 - History Present History: Alcohol Dependence Additional Comments: 34 years old male admitted on 05/28/19 for alcohol withdrawal sx management treated with valium detox regimen patient tolerated well alert oriented x 3 respiratory clear lung bilaterally on auscultation extremities full range of motion skin warm and dry - Physical Exam Results Vital Signs: Vital Signs Temperature 97.4 F L 06/01/19 12:42 Pulse Rate 98 H 06/01/19 12:42 Respiratory Rate 19 06/01/19 12:42 Blood Pressure 140/82 06/01/19 12:42 O2 Sat by Pulse Oximetry (%) Pertinent Admission Physical Exam Findings: alcohol withdrawal Laboratory Last Values WBC 6.3 K/mm3 (4.0-10.0) 05/29/19 08:00 RBC 4.46 M/mm3 (4.00-5.60) 05/29/19 08:00 Hgb 14.0 GM/dL (11.7-16.9) 05/29/19 08:00 Hct 41.8 % (35.4-49) 05/29/19 08:00 MCV 93.8 fl (80-96) 05/29/19 08:00 MCH 31.3 pg (25.7-33.7) 05/29/19 08:00 MCHC 33.4 g/dl (32.0-35.9) 05/29/19 08:00 RDW 14.6 % (11.9-15.9) 05/29/19 08:00 Plt Count 193 K/MM3 (134-434) D 05/29/19 08:00 MPV 9.4 fl (7.5-11.1) 05/29/19 08:00 PT with INR 9.90 SEC (9.7-13.0) 05/30/19 08:10 INR 0.84 (0.83-1.09) 05/30/19 08:10 Sodium 138 mmol/L (136-145) 05/30/19 08:10 Potassium 4.1 mmol/L (3.5-5.1) 05/30/19 08:10 Chloride 104 mmol/L (98-107) 05/30/19 08:10 Carbon Dioxide 26 mmol/L (21-32) 05/30/19 08:10 Anion Gap 8 MMOL/L (8-16) 05/30/19 08:10 BUN 14.8 mg/dL (7-18) 05/30/19 08:10 Creatinine 1.0 mg/dL (0.55-1.3) 05/30/19 08:10 Est GFR (CKD-EPI)AfAm 111.73 05/30/19 08:10 Est GFR (CKD-EPI)NonAf 96.40 05/30/19 08:10 Random Glucose 121 mg/dL (74-106) H 05/30/19 08:10 Calcium 9.1 mg/dL (8.5-10.1) 05/30/19 08:10 Total Bilirubin 0.7 mg/dL (0.2-1) 05/31/19 08:00 Direct Bilirubin 0.2 mg/dL (0.0-0.2) 05/31/19 08:00 AST 81 U/L (15-37) H 05/31/19 08:00 ALT 143 U/L (13-61) H 05/31/19 08:00 Alkaline Phosphatase 58 U/L (45-117) 05/31/19 08:00 Total Protein 6.7 g/dl (6.4-8.2) 05/31/19 08:00 Albumin 3.4 g/dl (3.4-5.0) 05/31/19 08:00 HIV 1&2 Antibody Screen Negative 05/29/19 08:00 HIV P24 Antigen Negative 05/29/19 08:00 lab noted - Treatment Hospital Course: Detox Protocol Followed, Detoxed Safely, Responded well, Discharged Condition Good, Rehab Referral Accepted Patient [facility] - Medication Discharge Medications: Ambulatory Orders NK [No Known Home Medication] 04/20/19 - Diagnosis (1) Alcohol dependence Status: Acute Qualifiers: Substance use status: uncomplicated Qualified Code(s): F10.20 - Alcohol dependence, uncomplicated (2) Hepatitis C antibody positive in blood Status: Chronic (3) Nicotine dependence Status: Acute Qualifiers: Nicotine product type: cigarettes Substance use status: in withdrawal Qualified Code(s): F17.213 - Nicotine dependence, cigarettes, with withdrawal - AMA Did Patient Leave Against Medical Advice: No CIWA Score - CIWA Score Nausea/Vomitin-No Nausea/No Vomiting Muscle Tremors: None Anxiety: 2 Agitation: 0-Normal Activity Paroxysmal Sweats: No Perspiration Orientation: 0-Oriented Tacttile Disturbances: 0-None Auditory Disturbances: 0-None Visual Disturbances: 0-None Headache: 0-None Present CIWA-Ar Total Score: 2
== END 2019-06-01 12:50 | disposition other institution (70) | DRG 775 ==
LOC: YASAS 18:33 → Y3N 23:53
PROVIDERS: ADMIT Allergy & Immunology; ATTEND Allergy & Immunology
PROC: HZ2ZZZZ Detoxification Services for Substance Abuse Treatment (ICD-10-PCS; principal; 2019-05-28)
DX: F10.230 Alcohol dependence with withdrawal, uncomplicated (principal); F17.213 Nicotine dependence, cigarettes, with withdrawal; B18.2 Chronic viral hepatitis C; R94.5 Abnormal results of liver function studies; R00.0 Tachycardia, unspecified
CPT/HCPCS: 36415; 80053; 80076; 85027; 85610; 87389

== ENCOUNTER 2019-06-01 12:50 | Inpatient (IN) | payer OTHER ==
[2019-06-01] MEDS ORDERED: MAG HYDROX/AL HYDROX/SIMETH 30 ML UNIT-DOSE CUP PO PRN (13:42)
[2019-06-01] MEDS ORDERED: guaiFENesin 200 MG/10 ML 10 ML UNIT-DOSE CUPS PO PRN (13:42)
[2019-06-01] MEDS ORDERED: MAGNESIUM CITRATE 300 ML BOTTLE PO PRN (13:42)
[2019-06-01] MEDS ORDERED: LOPERAMIDE HCL 2 MG CAPSULE PO PRN (13:42)
[2019-06-01] MEDS ORDERED: MAGNESIUM HYDROX 2400MG/30ML ORAL SUSPENSION 30 ML CUP PO PRN (13:42)
[2019-06-01] MEDS ORDERED: P-EPHED 60MG/TRIPROLIDI 2.5MG TABLET PO PRN (13:42)
[2019-06-01] MEDS ORDERED: MENTHOL/PHENOL 1 EACH UD MM PRN (13:42)
[2019-06-01] MEDS ORDERED: ACETAMINOPHEN 325 MG TABLET (FP) PO PRN (13:42)
[2019-06-01] MEDS ORDERED: NICOTINE POLACRILEX 2 MG GUM BUC PRN (13:42)
[2019-06-01] MEDS ORDERED: IBUPROFEN 400 MG TABLET (FP) PO PRN (13:42)
--- NOTE | 2019-06-01 13:42 | HP ---
[facility] Rehab Assess/Revision - Admission History Admitted to Rehab from: [facility] Date of Admission to Rehab: 06/01/19 - Vital signs Vital Signs: Vital Signs Period Temp Pulse Resp BP Sys/Anthony Pulse Ox Last 24 Hr 98.7 F 103 18 113/69 - Findings Detox History & Physical reviewed: Yes Concur with findings: Yes Comments/Additional Findings: transferred from detox to rehab admission as per protocol Inpatient Rehab Admission - Rehab Decision to Admit Inpatient rehab admission?: Yes - Initial Determination Are CD services needed?: Yes Free of communicable disease: Yes Not in need of hospitalization: Yes - Rehab Admission Criteria Previous failed treatment: Yes Poor recovery environment: Yes Comorbidities: Yes Lacks judgement: Yes Patient is meeting Inpatient Rehab admission criteria:: Yes
--- NOTE | 2019-06-01 15:20 | PN ---
[facility] Progress Note Note: Pt is a 33 y/o male with a hx of alcohol and cocaine use disorder admitted to rehab from detox today. pt reports he has primary care with [facility] on [address], [place]. C/o muscle aches and slight anxiety. Vital Signs 06/01/19 13:26 Temperature 98.7 F Pulse Rate 103 H Respiratory 18 Rate Blood Pressure 113/69 alert o x 3 nad oob ambulating with steady gait A/P new rehab patient s/p detox Maintain safety Vistaril 50 mg po Q4H prn for anxiety Robaxin 500 mg po tid prn for muscle spasms Last admission to rehab here in April, Pt was consulted by I.D counselor to explain and give patient all resources necessary for follow up of his positive hep C screen results with [facility] primary care. Pt was given personal educational reading materials as well. Pt reports back today that he followed up and blood work and tests were done but did not start medication yet. Reports insurance approval for the medication is still pending .
[2019-06-01] MEDS: MELATONIN 5 MG TABLETS PO PRN (22:01)
[2019-06-01] MEDS: THIAMINE HCL 100 MG TABLET (FP) PO SCH (22:01)
[2019-06-01] MEDS: hydrOXYzine PAMOATE 50 MG CAPSULE (FP) PO PRN (22:01)
[2019-06-01] MEDS: METHOCARBAMOL 500 MG TABLET PO PRN (22:01)
[2019-06-02] MEDS: PRENATAL VITAMINS W/ FOLIC ACID TABLET (FP) PO SCH (10:34)
[2019-06-02] MEDS: METHOCARBAMOL 500 MG TABLET PO PRN ×2 (10:34→15:12)
[2019-06-02] MEDS: NICOTINE 14 MG/24 HOURS TOPICAL PATCH TD SCH (10:34)
[2019-06-02] MEDS: hydrOXYzine PAMOATE 50 MG CAPSULE (FP) PO PRN ×3 (10:34→21:51)
[2019-06-02] MEDS: MELATONIN 5 MG TABLETS PO PRN (21:50)
[2019-06-02] MEDS: THIAMINE HCL 100 MG TABLET (FP) PO SCH (21:51)
[2019-06-03] MEDS: METHOCARBAMOL 500 MG TABLET PO PRN ×3 (06:55→21:44)
[2019-06-03] MEDS: hydrOXYzine PAMOATE 50 MG CAPSULE (FP) PO PRN ×4 (06:55→19:06)
[2019-06-03] MEDS: NICOTINE 14 MG/24 HOURS TOPICAL PATCH TD SCH (10:46)
[2019-06-03] MEDS: PRENATAL VITAMINS W/ FOLIC ACID TABLET (FP) PO SCH (10:46)
[2019-06-03] MEDS: THIAMINE HCL 100 MG TABLET (FP) PO SCH (21:44)
[2019-06-03] MEDS: MELATONIN 5 MG TABLETS PO PRN (21:44)
[2019-06-04] MEDS: PRENATAL VITAMINS W/ FOLIC ACID TABLET (FP) PO SCH (10:48)
[2019-06-04] MEDS: hydrOXYzine PAMOATE 50 MG CAPSULE (FP) PO PRN ×2 (10:49→21:43)
[2019-06-04] MEDS: METHOCARBAMOL 500 MG TABLET PO PRN (10:49)
[2019-06-04] MEDS: NICOTINE 14 MG/24 HOURS TOPICAL PATCH TD SCH (10:49)
[2019-06-04] MEDS: MELATONIN 5 MG TABLETS PO PRN (21:43)
[2019-06-04] MEDS: THIAMINE HCL 100 MG TABLET (FP) PO SCH (21:43)
[2019-06-05] MEDS: PRENATAL VITAMINS W/ FOLIC ACID TABLET (FP) PO SCH (10:27)
[2019-06-05] MEDS: NICOTINE 14 MG/24 HOURS TOPICAL PATCH TD SCH (10:27)
--- NOTE | 2019-06-05 19:02 | CONSULT ---
[facility] Psychiatric Consult - Data Date of interview: 06/05/19 Admission source: Transfer from [address] [place] [address]. Identifying data: Admission to [address] for this 34 y/o male who enlisted in rehabilitation after completion of detoxication at [address] [place] [address]. DEEDEE issues (alcohol, cocaine, cannabis/K2, nicotine). Patient is single, father of three, homeless (retirement), unemployed and deprived of income (welfare benefits revoked). Substance Abuse History: Discussed with patient. Details in current [facility] report as follows : Smoking history: Current every day smoker. Have you smoked in the past 12 months: Yes. Aproximately how many cigarettes per day: 7. Hx Chewing Tobacco Use: Yes. Initiated information on smoking cessation: Yes. 'Breaking Loose' booklet given: 05/28/19. - Substances abused. Alcohol. Substance route: Oral. Frequency: 3-6 times per week. Amount used: liquor- 1 pint, beer - 24oz (4). Age of first use: 14. Date of last use: 05/28/19. K2/Spice. Substance route: Smoking. Frequency: Daily. Amount used: $10. Age of first use: 34. Date of last use: 04/28/19 Medical History: Paient endorses good general health. Psychiatric History: Patient denies psychiatric hospitalizations, OPD care or suicide attempts. Physical/Sexual Abuse/Trauma History: Denies history of abuse. Despondent over a recent romantic relationship. Additional Comment: Urine drug screen results: SYL-Cocaine. Noted. Mental Status Exam - Mental Status Exam Alert and Oriented to: Time, Place, Person Cognitive Function: Good Patient Appearance: Well Groomed (muscular-built.) Mood: Anxious (moderately anxious), Hopeful Affect: Mood Congruent, Constricted Patient Behavior: Appropriate, Cooperative Speech Pattern: Clear, Appropriate Voice Loudness: Normal Thought Process: Intact, Goal Oriented Thought Disorder: Not Present Hallucinations: Denies Suicidal Ideation: Denies Homicidal Ideation: Denies Insight/Judgement: Fair Sleep: Well Appetite: Good Gait/Station: Normal Psychiatric Findings - Problem List (Lydia 1, 2,3) (1) Alcohol dependence Current Visit: Yes Status: Chronic Qualifiers: Substance use status: uncomplicated Qualified Code(s): F10.20 - Alcohol dependence, uncomplicated (2) Cannabis abuse Current Visit: Yes Status: Chronic (3) Nicotine dependence Current Visit: Yes Status: Chronic Qualifiers: Nicotine product type: cigarettes Substance use status: in withdrawal Qualified Code(s): F17.213 - Nicotine dependence, cigarettes, with withdrawal - Initial Treatment Plan Initial Treatment Plan: Psychoeducation. Support. Sleep hygiene. Motivational counseling. AA meetings. MAT services recommended. Observation.
[2019-06-05] MEDS: hydrOXYzine PAMOATE 50 MG CAPSULE (FP) PO PRN (21:44)
[2019-06-05] MEDS: MELATONIN 5 MG TABLETS PO PRN (21:44)
[2019-06-05] MEDS: THIAMINE HCL 100 MG TABLET (FP) PO SCH (21:44)
[2019-06-06] MEDS: NICOTINE 14 MG/24 HOURS TOPICAL PATCH TD SCH (10:47)
[2019-06-06] MEDS: PRENATAL VITAMINS W/ FOLIC ACID TABLET (FP) PO SCH (10:47)
[2019-06-06] MEDS: hydrOXYzine PAMOATE 50 MG CAPSULE (FP) PO PRN (10:48)
[2019-06-06] MEDS: THIAMINE HCL 100 MG TABLET (FP) PO SCH (22:20)
[2019-06-07] MEDS: hydrOXYzine PAMOATE 50 MG CAPSULE (FP) PO PRN ×4 (06:33→21:43)
[2019-06-07] MEDS: METHOCARBAMOL 500 MG TABLET PO PRN ×2 (06:33→16:33)
[2019-06-07] MEDS: PRENATAL VITAMINS W/ FOLIC ACID TABLET (FP) PO SCH (10:14)
[2019-06-07] MEDS: NICOTINE 14 MG/24 HOURS TOPICAL PATCH TD SCH (10:22)
[2019-06-07] MEDS: MELATONIN 5 MG TABLETS PO PRN (21:43)
[2019-06-07] MEDS: THIAMINE HCL 100 MG TABLET (FP) PO SCH (21:43)
[2019-06-08] MEDS ORDERED: COLLOIDAL OATMEAL 1 BAR EACH TP PRN (10:22)
--- NOTE | 2019-06-08 10:28 | PN ---
[facility] Progress Note Note: PATIENT C/O RASH AND ITCHING TO FACE AND CHEST AREA AFTER USING FACILITY SOAP AND UNKNOWN CREAM TO FACE AND BODY. PER PATIENT, HE DISCARDED CREAM IN GARBAGE. DENIES ANY RECENT CHANGE IN DIET AND STATES ITCHING RESOLVES AFTER A WHILE. Vital Signs Temperature 97.2 F L 06/07/19 06:59 Pulse Rate 73 06/07/19 06:59 Respiratory Rate 18 06/08/19 07:55 Blood Pressure 125/77 06/07/19 06:59 O2 Sat by Pulse Oximetry (%) PE: ALERT AND ORIENTED X 3 SKIN WARM AND DRY, INTACT NO OPEN AREAS OR LESIONS NOTED EXT FULL ROM, AMB AD JENNIFER A/P: PRURITIS WILL ORDER AVEENO SOAP HYDROCORTISONE CR 0.5% BID X 7 DAYS MONITOR CLINICALLY
[2019-06-08] MEDS: PRENATAL VITAMINS W/ FOLIC ACID TABLET (FP) PO SCH (10:41)
[2019-06-08] MEDS: NICOTINE 14 MG/24 HOURS TOPICAL PATCH TD SCH (10:41)
[2019-06-08] MEDS: hydrOXYzine PAMOATE 50 MG CAPSULE (FP) PO PRN ×2 (10:42→21:25)
[2019-06-08] MEDS: HYDROCORTISONE 0.5% TOPICAL CREAM 30 GM TUBE TP SCH (21:25)
[2019-06-08] MEDS: MELATONIN 5 MG TABLETS PO PRN (21:25)
[2019-06-08] MEDS: THIAMINE HCL 100 MG TABLET (FP) PO SCH (21:25)
[2019-06-09] MEDS: NICOTINE 14 MG/24 HOURS TOPICAL PATCH TD SCH (10:35)
[2019-06-09] MEDS: PRENATAL VITAMINS W/ FOLIC ACID TABLET (FP) PO SCH (10:36)
[2019-06-09] MEDS: hydrOXYzine PAMOATE 50 MG CAPSULE (FP) PO PRN ×2 (10:36→21:39)
[2019-06-09] MEDS: HYDROCORTISONE 0.5% TOPICAL CREAM 30 GM TUBE TP SCH ×2 (10:36→21:38)
[2019-06-09] MEDS: METHOCARBAMOL 500 MG TABLET PO PRN (10:36)
[2019-06-09] MEDS: THIAMINE HCL 100 MG TABLET (FP) PO SCH (21:39)
[2019-06-09] MEDS: MELATONIN 5 MG TABLETS PO PRN (21:39)
[2019-06-10] MEDS: hydrOXYzine PAMOATE 50 MG CAPSULE (FP) PO PRN ×2 (10:37→21:38)
[2019-06-10] MEDS: METHOCARBAMOL 500 MG TABLET PO PRN ×2 (10:37→21:38)
[2019-06-10] MEDS: HYDROCORTISONE 0.5% TOPICAL CREAM 30 GM TUBE TP SCH ×2 (10:38→21:38)
[2019-06-10] MEDS: PRENATAL VITAMINS W/ FOLIC ACID TABLET (FP) PO SCH (10:38)
[2019-06-10] MEDS: NICOTINE 14 MG/24 HOURS TOPICAL PATCH TD SCH (10:38)
[2019-06-10] MEDS: THIAMINE HCL 100 MG TABLET (FP) PO SCH (21:38)
[2019-06-10] MEDS: MELATONIN 5 MG TABLETS PO PRN (21:38)
[2019-06-11] MEDS: METHOCARBAMOL 500 MG TABLET PO PRN ×2 (10:17→21:32)
[2019-06-11] MEDS: HYDROCORTISONE 0.5% TOPICAL CREAM 30 GM TUBE TP SCH ×2 (10:17→21:33)
[2019-06-11] MEDS: NICOTINE 14 MG/24 HOURS TOPICAL PATCH TD SCH (10:17)
[2019-06-11] MEDS: PRENATAL VITAMINS W/ FOLIC ACID TABLET (FP) PO SCH (10:17)
[2019-06-11] MEDS: hydrOXYzine PAMOATE 50 MG CAPSULE (FP) PO PRN ×2 (10:17→21:32)
[2019-06-11] MEDS: THIAMINE HCL 100 MG TABLET (FP) PO SCH (21:32)
[2019-06-11] MEDS: MELATONIN 5 MG TABLETS PO PRN (21:32)
[2019-06-12] MEDS: PRENATAL VITAMINS W/ FOLIC ACID TABLET (FP) PO SCH (10:29)
[2019-06-12] MEDS: hydrOXYzine PAMOATE 50 MG CAPSULE (FP) PO PRN ×2 (10:29→21:44)
[2019-06-12] MEDS: NICOTINE 14 MG/24 HOURS TOPICAL PATCH TD SCH (10:29)
[2019-06-12] MEDS: METHOCARBAMOL 500 MG TABLET PO PRN (10:30)
[2019-06-12] MEDS: HYDROCORTISONE 0.5% TOPICAL CREAM 30 GM TUBE TP SCH ×2 (10:31→21:45)
[2019-06-12] MEDS: MELATONIN 5 MG TABLETS PO PRN (21:44)
[2019-06-12] MEDS: THIAMINE HCL 100 MG TABLET (FP) PO SCH (21:44)
[2019-06-13] MEDS: PRENATAL VITAMINS W/ FOLIC ACID TABLET (FP) PO SCH (10:45)
[2019-06-13] MEDS: hydrOXYzine PAMOATE 50 MG CAPSULE (FP) PO PRN ×2 (10:45→21:38)
[2019-06-13] MEDS: NICOTINE 14 MG/24 HOURS TOPICAL PATCH TD SCH (10:45)
[2019-06-13] MEDS: HYDROCORTISONE 0.5% TOPICAL CREAM 30 GM TUBE TP SCH ×2 (10:46→21:38)
[2019-06-13] MEDS: METHOCARBAMOL 500 MG TABLET PO PRN (21:38)
[2019-06-13] MEDS: THIAMINE HCL 100 MG TABLET (FP) PO SCH (21:38)
[2019-06-13] MEDS: MELATONIN 5 MG TABLETS PO PRN (21:38)
[2019-06-14] MEDS: hydrOXYzine PAMOATE 50 MG CAPSULE (FP) PO PRN ×3 (06:58→21:54)
[2019-06-14] MEDS: NICOTINE 14 MG/24 HOURS TOPICAL PATCH TD SCH (10:16)
[2019-06-14] MEDS: PRENATAL VITAMINS W/ FOLIC ACID TABLET (FP) PO SCH (10:17)
[2019-06-14] MEDS: HYDROCORTISONE 0.5% TOPICAL CREAM 30 GM TUBE TP SCH ×2 (10:17→21:55)
[2019-06-14] MEDS: METHOCARBAMOL 500 MG TABLET PO PRN (21:54)
[2019-06-14] MEDS: MELATONIN 5 MG TABLETS PO PRN (21:54)
[2019-06-14] MEDS: THIAMINE HCL 100 MG TABLET (FP) PO SCH (21:54)
[2019-06-15 07:04] VITALS: BP 109/64; PULSE 70; TEMP 97.8
--- NOTE | 2019-06-15 09:55 | DS ---
[facility] Rehab Discharge Summary - [facility] Rehab Discharge Summary Admission Date: 06/01/19 Discharge Date: 06/15/19 - History Present History: Alcohol dependence, Cannabis dependence, Cocaine dependence Additional Comments: Pt is a 33 y/o male with a hx of alcohol and cocaine use disorder admitted to rehab from detox and discharging today. Pt reports he has primary care with [facility] on [address] [place], [place] and has a follow up appointment for Hep C treatment on June 29, 2019. Pt met with his counselor, Ms Kassie Ambrocio and has been referred to CD follow up at [facility] in the [place]. Pt reports homelessness and referred back to [facility] on [address] [place] [address]. Pertinent Past History: Hep C(treatment pending) - Discharge Physical Exam Vital Signs: Vital Signs Temperature 97.8 F 06/15/19 07:03 Pulse Rate 70 06/15/19 07:03 Respiratory Rate 18 06/15/19 07:03 Blood Pressure 109/64 06/15/19 07:03 O2 Sat by Pulse Oximetry (%) Pertinent Admission Physical Exam Findings: Unremarkable - Treatment Discharge Condition: Discharge condition good Hospital Course: Rehabilitated safely CD aftercare referral follow up accepted - Medication Discharge Medications: Ambulatory Orders NK [No Known Home Medication] 04/20/19 - Medication-Assisted Treatment (MAT) Medication-Assisted Treatment (MAT): No - Discharge Instructions Diet, activity, other medical instructions: Diet:Regular Activity: oob ad jamie Other medical instructions:Follow up with [facility] for medical management within 1-2 weeks after discharge. follow up with CD aftercare referral as recommended and scheduled. - Diagnosis (1) Cocaine abuse Current Visit: Yes Status: Chronic (2) Alcohol dependence Current Visit: Yes Status: Chronic Qualifiers: Substance use status: uncomplicated Qualified Code(s): F10.20 - Alcohol dependence, uncomplicated (3) Cannabis abuse Current Visit: Yes Status: Chronic (4) Nicotine dependence Current Visit: Yes Status: Chronic Qualifiers: Nicotine product type: cigarettes Substance use status: uncomplicated Qualified Code(s): F17.210 - Nicotine dependence, cigarettes, uncomplicated (5) Hepatitis C antibody positive in blood Current Visit: Yes Status: Chronic - Follow-up Referral Minutes to complete discharge: 25 - AMA Did Patient Leave Against Medical Advice: No Additional Comments: Last admission to rehab here in April, Pt was consulted by [facility] counselor to explain and give patient all resources necessary for follow up of his positive hep C screen results with [facility] primary care. Pt was given personal educational reading materials as well. Pt reports back today that he followed up and blood work and tests were done but did not start medication yet. Pt reports today that he has appointment on June to start his first medication treatment at [facility].
[2019-06-15] MEDS: PRENATAL VITAMINS W/ FOLIC ACID TABLET (FP) PO SCH (10:10)
[2019-06-15] MEDS: HYDROCORTISONE 0.5% TOPICAL CREAM 30 GM TUBE TP SCH (10:10)
[2019-06-15] MEDS: NICOTINE 14 MG/24 HOURS TOPICAL PATCH TD SCH (10:11)
== END 2019-06-15 12:50 | disposition home or self-care (01) | DRG 772 ==
LOC: YASAS 12:50 → Y5N 12:51
PROVIDERS: ADMIT Neuromusculoskeletal Medicine & OMM; ATTEND Neuromusculoskeletal Medicine & OMM
PROC: HZ42ZZZ Group Counseling for Substance Abuse Treatment, Cognitive-Behavioral (ICD-10-PCS; principal; 2019-06-01)
DX: F10.20 Alcohol dependence, uncomplicated (principal); F14.10 Cocaine abuse, uncomplicated; F12.10 Cannabis abuse, uncomplicated; F17.210 Nicotine dependence, cigarettes, uncomplicated; B18.2 Chronic viral hepatitis C; R21 Rash and other nonspecific skin eruption; L29.9 Pruritus, unspecified